=== PATIENT | male | born 1975 | race Caucasian/White ===

== ENCOUNTER 2022-11-05 16:15 | Inpatient (IN) ==
[2022-11-05 16:58] LABS: ABS Monocytes 0.6 10^3/uL (0.0-1.1); ABS Neutrophils 4.8 10^3/uL (1.5-7.6); Eosinophil % 0.5 %; Hematocrit 43.7 % (38-53); Hemoglobin 15.6 g/dL (13.2-16.3); Lymphocyte % 26.5 %; Mean Corpuscular Hemoglobin 35.4 pg (27-33); Mean Corpuscular Hgb Conc 35.6 g/dL (31-36); Mean Corpuscular Volume 99.3 fL (80-97); Mean Platelet Volume 9.3 fL (7.5-11.2); Nucleated Red Blood Cells % 0.1 /100 WBC (0.0-0.4); Platelet Count 251 10^3/uL (150-450); Red Cell Distribution Width 13.5 % (12-17); White Blood Count 7.5 10^3/uL (3.6-10.2)
[2022-11-05] MEDS ORDERED: Thiamine 100 MG/ML 2 ml VIAL (200 mg) IM ONE (17:05)
[2022-11-05] MEDS ORDERED: Lorazepam PYXIS KEY PRN (17:09)
[2022-11-05 17:20] LABS: ALT 26 U/L (7-52); AST 40 U/L (13-39); Albumin 4.8 g/dL (3.2-5.2); Albumin/Globulin Ratio 1.5 (1-3); Alkaline Phosphatase 67 U/L (35-149); Anion Gap 14 mmol/L (2-16); Blood Urea Nitrogen 7 mg/dL (6-24); CO2 Carbon Dioxide 20 mmol/L (22-32); Calcium 9.7 mg/dL (8.6-10.3); Chloride 105 mmol/L (101-111); Creatinine, Serum 0.98 mg/dL (0.67-1.17); Globulin 3.1 g/dL (2-4); Glucose 128 mg/dL (70-100); Potassium 3.8 mmol/L (3.5-5.0); Sodium 139 mmol/L (135-145); Total Protein 7.9 g/dL (6.4-8.9); eGFR CKD-EPI 96.9 (>60)
[2022-11-05 17:34] LABS: Alcohol, S 178 mg/dL (<13); Salicylate < 2.50 mg/dL (<30)
[2022-11-05 17:35] LABS: Acetaminophen < 15 mcg/mL
[2022-11-05 17:36] LABS: High Sens Troponin Baseline < 3 pg/mL (<20)
[2022-11-05] MEDS ORDERED: Lactated Ringers SEPSIS* BAG 2,520 ML IV ONE (17:36)
[2022-11-05 17:48] LABS: TSH Ultra Thyroid Stim Horm 2.77 mcIU/mL (0.34-5.60)
[2022-11-05 18:18] LABS: High Sensitivity Troponin 1 Hr < 3 pg/mL (<20)
[2022-11-05 18:57] LABS: Urine Appearance Cloudy; Urine Bilirubin Negative (Negative); Urine Blood Negative (Negative); Urine Color Yellow; Urine Glucose Negative (Negative); Urine Ketones Negative (Negative); Urine Nitrite Negative (Negative); Urine Protein Negative (Negative); Urine Specific Gravity 1.009 (1.002-1.030); Urine Urobilinogen Negative (Negative)
[2022-11-05 18:58] LABS: Urine Bacteria Absent (Absent); Urine Red Blood Cell Trace(0-2/hpf) (Absent); Urine Squamous Epithelial Cell Present (Absent); Urine White Blood Cell Trace(0-5/hpf) (Absent)
[2022-11-05 19:17] LABS: Urine Benzodiazepine Screen None Detected (None Detect); Urine Cannabinoids Screen Presumptive Positive (None Detect); Urine Opiates Screen None Detected (None Detect)
[2022-11-05] MEDS ORDERED: Thiamine 100 MG/ML 2 ml VIAL (200 mg) IV ONE (19:20)
[2022-11-05] MEDS: LORazepam 2 mg VIAL 1 ml IV PUSH SCH ×2 (19:40→23:45)
[2022-11-05] MEDS ORDERED: Potassium Chlor 20 meq TAB.ER PO ONE (19:54)
[2022-11-05] MEDS ORDERED: Thiamine IV 100 MG in NS 0.9% 50 ML Q24H IV ONE (20:00)
[2022-11-06] MEDS ORDERED: Ondansetron 4 mg VIAL 2 MG/ML 2 ml VIAL IV PRN (07:47)
[2022-11-06] MEDS: Multivitamins/Minerals TAB PO SCH (08:43)
[2022-11-06] MEDS: LORazepam 2 mg VIAL 1 ml IV PUSH SCH (13:17)
[2022-11-07] MEDS: Multivitamins/Minerals TAB PO SCH (08:07)
[2022-11-08] MEDS: Multivitamins/Minerals TAB PO SCH (08:13)
[2022-11-08 09:15] LABS: ABS Eosinophils 0.1 10^3/uL (0.0-0.5); ABS Lymphocytes 1.7 10^3/uL (1.0-4.8); ABS Monocytes 0.5 10^3/uL (0.0-1.1); ABS Neutrophils 2.9 10^3/uL (1.5-7.6); ABS Nucleated RBC 0.01 10^3/ul; Hematocrit 42.7 % (38-53); Hemoglobin 14.9 g/dL (13.2-16.3); Lymphocyte % 32.6 %; Mean Corpuscular Hemoglobin 34.8 pg (27-33); Mean Corpuscular Volume 99.6 fL (80-97); Mean Platelet Volume 9.7 fL (7.5-11.2); Nucleated Red Blood Cells % 0.1 /100 WBC (0.0-0.4); Platelet Count 169 10^3/uL (150-450); Red Blood Count 4.29 10^6/uL (4.06-5.63); Red Cell Distribution Width 13.4 % (12-17); White Blood Count 5.3 10^3/uL (3.6-10.2)
[2022-11-08 09:24] LABS: Albumin 4.2 g/dL (3.2-5.2); Albumin/Globulin Ratio 1.4 (1-3); Calcium 9.1 mg/dL (8.6-10.3); Creatinine, Serum 0.96 mg/dL (0.67-1.17); Total Bilirubin 0.8 mg/dL (0.2-1.0); Total Protein 7.2 g/dL (6.4-8.9); eGFR CKD-EPI 99.3 (>60)
[2022-11-08] MEDS ORDERED: Lorazepam PYXIS KEY PRN (15:54)
[2022-11-08] MEDS ORDERED: LORazepam 2 mg VIAL 1 ml IV PUSH ONE (15:55)
[2022-11-09] MEDS: Multivitamins/Minerals TAB PO SCH (07:42)
[2022-11-10 06:46] LABS: Albumin 4.1 g/dL (3.2-5.2); Albumin/Globulin Ratio 1.5 (1-3); Creatinine, Serum 0.96 mg/dL (0.67-1.17); Globulin 2.8 g/dL (2-4); Potassium 3.9 mmol/L (3.5-5.0); Total Bilirubin 0.4 mg/dL (0.2-1.0); Total Protein 6.9 g/dL (6.4-8.9); eGFR CKD-EPI 99.3 (>60)
[2022-11-10] MEDS: Multivitamins/Minerals TAB PO SCH (07:39)
[2022-11-11] MEDS: Multivitamins/Minerals TAB PO SCH (08:06)
[2022-11-12] MEDS: Multivitamins/Minerals TAB PO SCH (08:14)
[2022-11-13] MEDS: Multivitamins/Minerals TAB PO SCH (09:01)
[2022-11-13] MEDS ORDERED: LORazepam ORAL LIQ 2 MG/ML BULK BOTTLE SL ONE (16:05)
[2022-11-19 08:45] VITALS: BP 151/102
== END 2022-11-19 13:20 | disposition home or self-care (01) | DRG 775 ==
LOC: ED 16:15 → EDHOLD 16:15 → SUATTDRO 18:35 → MED 22:39 → BSU 11-13 18:01
PROVIDERS: ADMIT Internal Medicine; ATTEND Psychiatry & Neurology Psychiatry